=== PATIENT | male | born 1995 | race Caucasian/White ===

== ENCOUNTER 2025-02-21 11:07 | Outpatient (OUT) | payer OTHER, SELFPAY ==
--- OUTSIDE RECORDS SUMMARY | 2025-02-21 11:13 | XMS_ITS | Clinical Summary ---
Author Organization [facility] Address [address] [place] [address] Care Team Providers Care Medical Reception Specialist Name Role Phone Mich Peck DO Primary Care Provider [phone] Lucia Iqbal SENIOR LABEL SPECIALIST.CARPENTER REPAIRER Unavailable [phone] Vira Garsia ACCOUNTS SPECIALIST Unavailable Unavailable Allergies No known active allergies Medications prochlorperazi ne (COMPAZINE) 10 mg tablet Take 1 tablet by mouth every 6 hours as needed. 100 tablet 1 02/08/2022 3:55 PM EDT 2 Active ondansetron (ZOFRAN) 4 mg tablet Take 1 tablet by mouth every 8 hours as needed for nausea/vomiting. 90 tablet 1 02/14/2022 2:34 PM EDT 2 Active acetaminophen 325 mg cap Take by mouth as needed. Active ibuprofen (MOTRIN) 200 mg tablet Take 200 mg by mouth as needed. Active clomiPHENe (CLOMID) 50 mg tablet Take 25 mg by mouth once daily. Active cetirizine HCl (ZYRTEC ORAL) Take by mouth. A ctive busPIRone (BUSPAR) 10 mg tablet Take 1 tablet by mouth two times a day. 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 Discontinue saline lock post exam. If Pt. has a central line or IVAD, may access for administration according to line specific nursing protocol. Once exam is complete flush line and de-access according to line specific nursing protocol in the CT contrast administration guidelines link. 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) For CT CHESTABD/PEL W IVCON Routine order Administer, As Directed One Time Only, via Oral, Rectal, both Oral and Rectal, Enteric Tube, Stoma or Indwelling Catheter, Enteric Contrast as designated per enteric contrast guidelines 1 each 5 Active Active Problems Problem Noted Date Diagnosed Date Malignant neoplasm of descended left testis 06/2021 Resolved Problems Problem Noted Date Diagnosed Date Resolved Date Morbid obesity 02/09/2022 02/09/2022 Encounters Date Type Department Care Team Description 01/14/2025 4:00 PM EDT Visit (SP) Office Hematology/Oncolog y [address] [place] [address] [place] [address] Daquan Matamoros MD 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) (Primary Dx); 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); Personal history of malignant neoplasm of testis 01/14/2025 Travel 01/06/2025 8:30 AM EDT Infusion Center Hematology/Oncolog y [address] [place] [address] 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); Malignant neoplasm of testicle, unspecified laterality, unspecified whether descended or undescended (HCC) 01/06/2025 7:38 AM EDT - 01/06/2025 11:59 PM EDT Hospital Encounter Radiology Pet CT [address] [facility] [place] [place] [address] Malignant neoplasm of testicle, unspecified laterality, unspecified whether descended or undescended (HCC) [C62.90] Discharge Disposition: Home 01/06/2025 Results Follow-Up Hematology/Oncolog y [address] [place] [address] [place] [address] Evelin Encarnacion PA-C Results - Ct 01/06/2025 Travel 12/22/2024 Telephone Hematology/Oncolog y [facility] [place] [address] Daquan Matamoros MD Orders 12/10/2024 Telephone Hematology/Oncolog y [address] [facility] [place] [address] Daquan Matamoros MD [facility] Paperwork 12/02/2024 Telephone Hematology/Oncolog y [address] [facility] [place] [address] Daquan Matamoros MD [facility] Paperwork from Last 3 Months Immunizations Immunization Administration Dates Next Due COVID-19 original vaccine, f ull dose, monovalent (MODERNA) 04/26/2021,03/29/2021 COVID-19 vaccine (SISI) 04/18/2021,03/15/2021 adenovirus types 4 and 7 vac cine, live, oral 04/20/2017 hepatitis A (HepA) vaccine, 2-dose series, ped/adol (HAVRIX-PEDS, VAQTA-PEDS) 07/13/2017 hepatitis A-hepatitis B (Hep A-HepB) vaccine (TWINRIX) 04/04/2018 hepatitis B (HepB) vaccine, 3-dose series, age 0 yr - 19 yr (ENGERIX B-PEDS, RECOMBIVAX HB-PEDS) 07/13/2017 influenza (IIV4) vaccine, ag e 6 mo - 64 yr, quadrivalent, PF (AFLURIA, FLUARIX, FLULAVAL, FLUZONE) 03/21/2022,04/02/2019,04/04/2018 influenza (ccIIV4) vaccine, age 6+ mo, quadrivalent, PF (FLUCELVAX) 04/20/2017 meningococcal (MenACWY-CRM) vaccine, quadrivalent (MENVEO) 04/20/2017 meningococcal (MenACWY-D) va ccine, quadrivalent (MENACTRA) 04/20/2017 poliovirus (IPV) vaccine, in activated (IPOL) 07/13/2017 tetanus diphtheria pertussis (Tdap) vaccine, age 7+ yr (ADACEL, BOOSTRIX) 04/20/2017 Family History Medical History Relation Comments Alcohol abuse Brother Prostate Cancer Father Stroke Maternal Grandfather Heart disease Maternal Grandmother Hypertension Mother Colon Cancer Paternal Grandfather Stroke Paternal Grandfather Stroke Paternal Grandmother Prostate Cancer Paternal Uncle Relation Status Comments Brother Father Maternal Grandfather Maternal Grandmother Mother Paternal Grandfather Paternal Grandmother Paternal Uncle Alive Social History Tobacco Use Types Packs/Day Years Used Date Smoking Tobacco: Never Passive Smoke Exposure: Past Smokeless Tobacco: Current Chew Tobacco Cessation:Ready to Q uit: No; Counseling Given: No Alcohol Use Standard Drinks/Week Comments Not Currently 0 (1 standard drink = 0.6 oz pur e alcohol) PHQ-2 Answer Date Recorded PHQ-2 score 0 10/13/2024 Area Deprivation Index Answer Date Vinh rded National Score (1-100), lower number is lower ri sk 61 10/13/2024 State Score (1-10), lower number is lower risk 4 10/13/2024 Data from: https://www.neighborhoodatlas.medicine.[facility].edu/. Last address used for calculation [address] [address] 10/13/2024 Sex and Gender Information Value Date Recorded Sex Assigned at Not on file Legal Sex Male 9:04 AM EDT Gender Identity Not on file Sexual Orientation Not on file Last Filed Vital Signs Vital Sign Reading Time Taken Comments Blood Pressure 131/79 01/14/2025 3:29 PM EDT Pulse 53 01/14/2025 3:29 PM EDT Temperature 36.2 C (97.1 F) 01/14/2025 3:29 PM EDT Respiratory Rate 16 01/14/2025 3:29 PM EDT Oxygen Saturation 100% 01/14/2025 3:29 PM EDT Inhaled Oxygen Concentration - - Weight 137 kg (302 lb 0.5 oz) 01/14/2025 3:29 PM EDT Height 182.9 cm (6' 0.01 ) 01/14/2025 3:29 PM ED T Body Mass Index 40.95 01/14/2025 3:29 PM EDT Plan of Treatment Upcoming Encounters Date Type Department Care Team (Latest Contact Info) Description 04/09/2025 7:45 AM EST Appointment Radiology Pet CT [address] [place] [address] Ct CAP with contrast and lab 04/16/2025 3:40 PM EST Visit (SP) Office Hematology/Oncology [address] [place] [address] Daquan Matamoros MD [address] [place] [address] 3 month follwo up for ct and lab results Health Maintenance Due Date Last Done Comments Anxiety Screening 2012 Depression Screening 2012 HIV Screening 2012 Hepatitis C Screening 2012 Hepatitis B Vaccine (2 of 3 - 19+ 3-dose series) 05/02/2018 04/04/2018, 07/13/2017 HPV Vaccine (1 - 3-dose SCDM series) 2021 Influenza Vaccine (#1) 2025 2, 04/02/2019, 04/04/2018, Additional history exists DTaP,Tdap,Td Vaccine (2 - Td or Tdap) 04/20/2027 04/20/2017 Medical Devices Implanted Type Area Motion Picture Operator Device Identifier Shelf Expiration Date Model / Serial / Lot Power Port-02/23/2022 Implanted:2021 (Quantity not on file) Port Chest Procedures Procedure Name Priority Date/Time Associated Diagnosis Comments BETA HCG QUANT TUMOR MARKER Routine 01/06/2025 8:36 AM EDT 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) ALPHA FETOPROTEIN BL Routine 01/06/2025 8:36 AM EDT 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) CT CHEST WO IVCON Routine 01/06/2025 7:5 5 AM EDT Malignant neoplasm of testicle, unspecified laterality, unspecified whether descended or undescended (HCC) from Last 3 Months Results * BETA HCG QUANT TUMOR MARKER (01/06/2025 8:36 AM EDT) Beta hCG Quant Tumor Marker <1 0 - 3 IU/L 01/08/2025 1:45 AM EDT [facility] Comment: INTERPRETIVE INFORMATION: Beta hCG, Serum Quantitation Tumor Marker Human chorionic gonadotropin (hCG) is a valuable aid in the management of patients with trophoblastic tumors, nonseminomatous testicular tumors and seminomas when used in conjunction with information available from the clinical evaluation and other diagnostic procedures. Increased serum HCG concentrations have also been observed in melanoma, carcinomas of the breast, gastrointestinal tract, lung, and ovaries, and in benign conditions, including cirrhosis, duodenal ulcer, and inflammatory bowel disease. This result cannot be interpreted as absolute evidence of the presence or absence of malignant disease. This result is not interpretable as a tumor marker in females. The combination of the specific monoclonal antibodies used in the Trini Beta HCG electrochemiluminescent immunoassay recognize the holo-hormone, nicked forms of hCG, the beta-core fragment, and the free beta-subunit. Results obtained with different test methods or kits cannot be used interchangeably. Although this assay is FDA cleared for use in the detection of , it is not labeled for use as a tumor marker. Access complete set of age- and/or gender-specific reference intervals for this test in the [facility] Test Directory ([employer]). This test was developed and its performance characteristics determined by [facility]. It has not been cleared or approved by the US Food and Drug Administration. This test was performed in a CLIA certified laboratory and is intended for clinical purposes. Performed By: [facility] [address] [place] [address] Director Athletic: Gregory Pitt MD, PhD CLIA Number: [id number] Blood BLOOD SPECIMEN / Unknown Port - Continuous Access Dev. / Unknown 01/06/2025 8:36 AM EDT 01/06/2025 8:40 AM EDT Brown Chavez MD LABORATORY Final Re sult [facility] [address] [place] [address] * ALPHA FETOPROTEIN (01/06/2025 8:36 AM EDT) AFP, Serum (Tumor Marker) 3.12 <9.00 ng/mL 01/07/2025 9:30 AM EDT [facility] Comment:The Alpha-Fetoprotei n test was performed using the [employer] DxI immunoenzymatic assay. Results obtained with different assay methods or kits cannot be used interchangeably. Blood BLOOD SPECIMEN / Unknown Port - Continuous Access Dev. / Unknown 01/06/2025 8:36 AM EDT 01/06/2025 8:40 AM EDT Narrative [facility] - 01/07/2025 9:30 AM EDT The test is typically used as an aid in managing hepatocellular carcinoma and non-seminomatous testicular cancer when used in conjunction with physical examination, histology, and other clinical evaluation procedures. Normal levels of AFP do not entirely exclude the possibility of the above-mentioned conditions, other malignancies, and chronic liver diseases. The normal range has not been established for newborns. us Brown Chavez MD LABORATORY Final Re sult [facility] [address] [facility] Desk [address] [place] [id number], [place] * CT CHEST WO IVCON (01/06/2025 7:55 AM EDT) Anatomical Region Laterality Modality Chest Nuclear Medicine , Nuclear Medicine 01/06/2025 7:55 AM EDT Impressions 01/06/2025 12:26 PM EDT IMPRESSION: 1. Interval resolution of some the previously noted nodular opacities. 2. Residual subcentimeter nodular opacities measuring less than 5 mm, stable since 10/06/24. Consider continued interval follow-up. 3. No evidence of new intrathoracic abnormalities. Transcribe Date/Time: Jan 06 2025 11:37A Dictated by: TRAE LEONARD MD This examination was interpreted and the report reviewed and electronically signed by: TRAE LEONARD MD on Jan 06 2025 12:24PM EST Thank you for allowing us to participate in the care of your patient. Should there be any questions regarding this interpretation, please call [phone]. If you are unable to reach us at the number above, please feel free to contact [facility] at [phone]. Narrative 01/06/2025 12:26 PM EDT * * *Final Report* * * DATE OF EXAM: Jan 06 2025 7:55AM [facility] 0541 - CT CHEST WO IVCON / PROCEDURE REASON: Malignant neoplasm of testicle, unspecified laterality, unspecified whether desc * * * * Physician Interpretation * * * * RESULT: EXAMINATION: CHEST CT WITHOUT CONTRAST CLINICAL HISTORY: Testicular cancer Technique: Spiral CT acquisition of the chest from the thoracic inlet to the upper abdomen without contrast. MQ: CTCWO_6 CT Radiation dose: Integrated Dose-length product (DLP) for this visit = 523 mGy*cm CT Dose Reduction Employed: Automated exposure control (AEC) Comparison: 10/06/24 RESULT: Limitations: None. Lines, tubes, and devices: Right Port-A-Cath. Lung parenchyma and airways: Interval resolution of some of the previously noted nodular opacities. Residual nodular opacities measuring less than 5 mm, stable. For example Right upper lobe (3:82) Right middle lobe (3:126, 127) Left lower lobe (3:66, 133) No new airspace opacities. The central airways are patent. Pleural space: No pleural effusion. No pleural thickening. Lower neck, lymph nodes, and mediastinum: The imaged thyroid gland is normal. No lymphadenopathy in the supraclavicular, axillary, mediastinal, or hilar regions. Residual thymus is noted in the anterior mediastinum, stable. Heart, pericardium, and thoracic vessels: The thoracic aorta and main pulmonary artery are normal in caliber. The cardiac chambers are normal in size. No coronary artery atherosclerotic calcifications are noted, although the study is not optimized for coronary assessment. No pericardial effusion or thickening. Bones and soft tissues: Sclerotic foci in the T4, T7 vertebral body, and left posterior eighth rib, stable and may represent bone islands. No new osseous abnormalities. Upper abdomen: Stable Materials Management Supervisor (topogram) images: No additional findings. Procedure Note Provider, [facility] - 01/06/2025 * * *Final Report* * * DATE OF EXAM: Jan 06 2025 7:55AM [facility] 0541 - CT CHEST WO IVCON / PROCEDURE REASON: Malignant neoplasm of testicle, unspecified laterality, unspecified whether desc * * * * Physician Interpretation * * * * RESULT: EXAMINATION: CHEST CT WITHOUT CONTRAST CLINICAL HISTORY: Testicular cancer Technique: Spiral CT acquisition of the chest from the thoracic inlet to the upper abdomen without contrast. MQ: CTCWO_6 CT Radiation dose: Integrated Dose-length product (DLP) for this visit = 523 mGy*cm CT Dose Reduction Employed: Automated exposure control (AEC) Comparison: 10/06/24 RESULT: Limitations: None. Lines, tubes, and devices: Right Port-A-Cath. Lung parenchyma and airways: Interval resolution of some of the previously noted nodular opacities. Residual nodular opacities measuring less than 5 mm, stable. Forexample Right upper lobe (3:82) Right middle lobe (3:126, 127) Left lower lobe (3:66, 133) No new airspace opacities. The central airways are patent. Pleural space: No pleural effusion. No pleural thickening. Lower neck, lymph nodes, and mediastinum: The imaged thyroid gland is normal. No lymphadenopathy in the supraclavicular, axillary, mediastinal, or hilar regions. Residual thymus is noted in the anterior mediastinum, stable. Heart, pericardium, and thoracic vessels: The thoracic aorta and main pulmonary artery are normal in caliber. The cardiac chambers are normal in size. No coronary artery atherosclerotic calcifications are noted, although the study is not optimized for coronary assessment. No pericardial effusion or thickening. Bones and soft tissues: Sclerotic foci in the T4, T7 vertebral body, and left posterior eighth rib, stable and may represent bone islands. No new osseous abnormalities. Upper abdomen: Stable Materials Management Supervisor (topogram) images: No additional findings. IMPRESSION IMPRESSION: 1. Interval resolution of some the previously noted nodular opacities. 2. Residual subcentimeter nodular opacities measuring less than 5 mm, stable since 10/06/24. Consider continued interval follow-up. 3. No evidence of new intrathoracic abnormalities. Transcribe Date/Time: Jan 06 2025 11:37A Dictated by: TRAE LEONARD MD This examination was interpreted and the report reviewed and electronically signed by: TRAE LEONARD MD on Jan 06 2025 12:24PM EST Thank you for allowing us to participate in the care of your patient. Should there be any questions regarding this interpretation, please call [phone]. If you are unable to reach us at the number above, please feel free to contact [facility] at [phone]. us Evelin Encarnacion PA-C CT-PAMA Final Result from Last 3 Months Insurance [address] [address] [facility] Care Teams Medical Reception Specialist Relationship Specialty Start Date End Date Mich Peck DO [address] [place] [address] PCP - General Family Medicine 12/21/21 Lucia Iqbal APRN.CARPENTER REPAIRER [address] [place] [address] [place] [address] Nurse Practitioner Hematology/Oncology 02/07/22 Vira Garsia LSW Overhead Cleaner 02/08/22 Jie Ext - [id number] 02/14/22
--- OUTSIDE RECORDS SUMMARY | 2025-02-21 11:13 | XMS_ITS | Encounter Summary ---
Author Organization [facility] Address [address] [place] [address] Care Team Providers Care Machine Washer Name Role Phone Mich Peck DO Primary Care Provider [phone] Brown Chavez MD Unavailable Unavail able Lucia Iqbal HEAD ANIMAL KEEPER.FEATHER TRIMMER Unavailable [phone] Yamilet Duffy RN Unavailable [phone] Vira Garsia CAR BODY DESIGNER Unavailable Unavailable Source Comments In the event this information is protected by the Federal Confidentiality of Alcohol and Drug AbusePatient Records regulations: The Federal rules restrict any use of the information to criminally investigate or prosecute any alcohol or drug abuse patient.[facility] Encounter Details Date Type Department Care Team (Late st Contact Info) Description 01/06/2022 Lab Requisition [facility] [address] [place] [id number] Brown Chavez MD Person encountering health services to consult on behalf of another person Social History Tobacco Use Types Packs/Day Years Used Date Smoking Tobacco: Never Smokeless Tobacco: Current Chew Alcohol Use Standard Drinks/Week Comments Not Currently 0 (1 standard drink = 0.6 oz pur e alcohol) Area Deprivation Index Answer Date Vinh rded National Score (1-100), lower number is lower ri 82 01/02/2022 State Score (1-10), lower number is lower risk N ot on file 01/02/2022 Data from: https://www.neighborhoodatlas.medicine.[facility].edu/. Last address used for calculation [address] 01/02/2022 Sex and Gender Information Value Date Recorded Sex Assigned at Not on file Legal Sex Male 9:04 AM EDT Gender Identity Not on file Sexual Orientation Not on file COVID-19 Exposure Response Date Recorded In the last 10 days, have yo u been in contact with someone who was confirmed or suspected to have Coronavirus/COVID-19? No / Unsure 01/09/2022 1:57 PM EDT documented as of this encounter Plan of Treatment Upcoming Encounters Date Type Department Care Team (Latest Contact Info) Description 04/09/2025 7:45 AM EST Appointment Radiology Pet CT [address] [place] [address] [place] [address] Ct CAP with contrast and lab 04/16/2025 3:40 PM EST Visit (SP) Office Hematology/Oncology [address] [place] [address] [place] [address] Daquan Matamoros MD [address] [place] [address] [place] [address] 3 month follwo up for ct and lab results documented as of this encounter Procedures Procedure Name Priority Date/Time Associated Diagnosis Comments OUTSIDE SURG PATH SLIDE REVIEW Routine 01/06/2022 1:58 PM EDT Person encountering health services to consult on behalf of another person documented in this encounter Results * OUTSIDE SURG PATH SLIDE REVIEW (01/06/2022 1:58 PM EDT) Case Report Surgical Pathology Report Case: [id number] Authorizing Provider: Brown Chavez MD Collected: 01/06/2022 01:58 PM Ordering Location: [facility] Main Received: 01/06/2022 01:57 PM Pathologist: Germain Rodriguez MD Specimen: SLIDE(S), 22 Slides - [id number] 01/10/2022 3:52 PM EDT [facility] FINAL DIAGNOSIS Outside Slide Review, [facility], [place], [place] Testis, left, radical orchiectomy ([id number], slides [id number]-[id number]; 12/15/2021): - Malignant mixed germ cell tumor, 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 - Tumor is confined to the testis. - Lymphovascular invasion is identified. 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 - Surgical resection margins are negative for malignancy. [facility]/mm/01/10/2022 01/10/2022 3:52 PM EDT [facility] at 1552 EDT Diagnosis Comment Submitted immunohistochemical stains are reviewed and of note CD30 highlights areas of embryonal carcinoma. CD117 and PLAP highlight the area of seminoma. 01/10/2022 3:52 PM EDT [facility] Performing Lab Diagnostic interpretation performed at [facility], [address] [place] [address] CLIA# [id number] It Communications Manager: Jamie Fair M.D. 01/10/2022 3:52 PM EDT [facility] Blocks or Slides MICROSCOPE SLIDE / Unknown 01/06/2022 1:58 PM EDT 01/06/2022 1:57 PM EDT us Brown Chavez MD SURGICAL PATHOLOGY Final Result [facility] [address] [place] [address] documented in this encounter Visit Diagnoses Diagnosis Person encountering health services to consult on behalf of another person Other person consulting on behalf of another person documented in this encounter Care Teams Machine Washer Relationship Specialty Start Date End Date Mich Peck DO [address] [place] [address] PCP - General Family Medicine 12/21/21 Brown Chavez MD [address] [place] [address] Physician Hematology/Oncology 02/07/22 12/05/24 Lucia Iqbal APRN.[facility] [address] [place] [address] Nurse Practitioner Hematology/Oncology 02/07/22 Yamilet Duffy, CELIA [address] [place] [address] Specialty Hot Head Machine Operator Hematology/Oncology 02/07/22 04/03/23 Vira Garsia LSW Continuous Improvement Coordinator 02/08/22 Jie Ext - [id number] 02/14/22 documented as of this encounter
--- OUTSIDE RECORDS SUMMARY | 2025-02-21 11:13 | XMS_ITS | Encounter Summary ---
Author Organization [facility] Address [address] [place] [address] Care Team Providers Care Pulp Drier Name Role Phone Mich Peck DO Primary Care Provider [phone] Brown Chavez MD Unavailable Unavail able Lucia Iqbal CAUSTIC PUMP OPERATOR.BALANCE STAFF INSPECTOR Unavailable [phone] Vira Garsia Unavailable Unavailable Source Comments In the event this information is protected by the Federal Confidentiality of Alcohol and Drug AbusePatient Records regulations: The Federal rules restrict any use of the information to criminally investigate or prosecute any alcohol or drug abuse patient.[facility] Encounter Details Date Type Department Care Team (Late st Contact Info) Description 10/07/2024 Patient Msg Pulmonary Medicine [id number] Result Notification Social History Tobacco Use Types Packs/Day Years Used Date Smoking Tobacco: Never Passive Smoke Exposure: Past Smokeless Tobacco: Current Chew Alcohol Use Standard Drinks/Week Comments Not Currently 0 (1 standard drink = 0.6 oz pur e alcohol) PHQ-2 Answer Date Recorded PHQ-2 score 0 11/12/2023 Area Deprivation Index Answer Date Vinh rded National Score (1-100), lower number is lower ri sk 91 11/02/2022 State Score (1-10), lower number is lower risk 9 11/02/2022 Data from: https://www.neighborhoodatlas.[facility].edu/. Last address used for calculation [address] [facility] 11/02/2022 Sex and Gender Information Value Date Recorded Sex Assigned at Not on file Legal Sex Male 9:04 AM EDT Gender Identity Not on file Sexual Orientation Not on file documented as of this encounter Plan of Treatment Upcoming Encounters Date Type Department Care Team (Latest Contact Info) Description 04/09/2025 7:45 AM EST Appointment Radiology Pet CT [address] [place] [address] [place] [address] Ct CAP with contrast and lab 04/16/2025 3:40 PM EST Visit (SP) Office Hematology/Oncology [address] [place] [address] [place] [address] Daquan Matamoros MD [address] [place] [address] [place] [address] 3 month follwo up for ct and lab results documented as of this encounter Visit Diagnoses Not on filedocumented in this encounter Care Teams Pulp Drier Relationship Specialty Start Date End Date Mich Peck DO [address] [place] [address] PCP - General Family Medicine 12/21/21 Brown Chavez MD [address] [place] [address] Physician Hematology/Oncology 02/07/22 Lucia Iqbal APRN.BALANCE STAFF INSPECTOR [address] [place] [address] [place] [address] Nurse Practitioner Hematology/Oncology 02/07/22 Vira Garsia LSW Taste Tester 02/08/22 Jie Ext - [id number] 02/14/22 documented as of this encounter
--- OUTSIDE RECORDS SUMMARY | 2025-02-21 11:13 | XMS_ITS | Encounter Summary ---
Author Organization [facility] Address [address] [place] [address] Care Team Providers Care Furniture Assembly Supervisor Name Role Phone Mich Peck DO Primary Care Provider [phone] Brown Chavez MD Unavailable Unavail able Lucia Iqbal RACEHORSE TRAINER.DIRECTOR DESIGN Unavailable [phone] Yamilet Duffy RN Unavailable [phone] Vira Garsia CONTACT CLERK Unavailable Unavailable Source Comments In the event this information is protected by the Federal Confidentiality of Alcohol and Drug AbusePatient Records regulations: The Federal rules restrict any use of the information to criminally investigate or prosecute any alcohol or drug abuse patient.[facility] Encounter Details Date Type Department Care Team (Late st Contact Info) Description 02/08/[address] [facility] Radiology Procedure [address] [place] [address] Provider, Ccf You are scheduled for a Port placement, On 02/09/2022. Social History Tobacco Use Types Packs/Day Years Used Date Smoking Tobacco: Never Passive Smoke Exposure: Past Smokeless Tobacco: Current Chew Alcohol Use Standard Drinks/Week Comments Not Currently 0 (1 standard drink = 0.6 oz pur e alcohol) PHQ-2 Answer Date Recorded PHQ-2 score 0 01/17/2022 Area Deprivation Index Answer Date Vinh rded National Score (1-100), lower number is lower ri sk 82 01/02/2022 State Score (1-10), lower number is lower risk N ot on file 01/02/2022 Data from: https://www.neighborhoodatlas.[facility].edu/. Last address used for calculation [address] [...] suspected to have Coronavirus/COVID-19? No / Unsure 02/08/2022 2:52 PM EDT documented as of this encounter Plan of Treatment Upcoming Encounters Date Type Department Care Team (Latest Contact Info) Description 04/09/2025 7:45 AM EST Appointment Radiology Pet CT [address] [place] [address] [place] [address] Ct CAP with contrast and lab 04/16/2025 3:40 PM EST Visit (SP) Office Hematology/Oncology [address] [place] [address] [place] [address] Daquan Matamoros MD [address] [place] [address] [place] [address] 3 month follwo up for ct and lab results documented as of this encounter Visit Diagnoses Not on filedocumented in this encounter Care Teams Furniture Assembly Supervisor Relationship Specialty Start Date End Date Mich Peck DO [address] [place] [address] PCP - General Family Medicine 12/21/21 Brown Chavez MD [address] [place] [address] Physician Hematology/Oncology 02/07/22 12/05/24 Lucia Iqbal, NAHUN.DIRECTOR DESIGN [address] [place] [address] [place] [address] Nurse Practitioner Hematology/Oncology 02/07/22 Yamilet Duffy, RN [address] [place] [address] [place] [address] Specialty Healthcare Translator Hematology/Oncology 02/07/22 04/03/23 Vira Garsia LSW Mandrel Puller 02/08/22 Jie Ext - [id number] 02/14/22 documented as of this encounter
--- OUTSIDE RECORDS SUMMARY | 2025-02-21 11:13 | XMS_ITS | Encounter Summary ---
Author Organization [facility] Address [address] [place] [address] Care Team Providers Care Phosphoric Acid Operator Name Role Phone Elianeaparna Mich Meyer DO Primary Care Provider [phone] Brown Chavez MD Unavailable Unavail able Lucia Iqbal GRINDER AND PLATER.JOB SPECIFICATION WRITER Unavailable [phone] Vira Garsia Unavailable Unavailable Source Comments In the event this information is protected by the Federal Confidentiality of Alcohol and Drug AbusePatient Records regulations: The Federal rules restrict any use of the information to criminally investigate or prosecute any alcohol or drug abuse patient.[facility] Encounter Details Date Type Department Care Team (Late st Contact Info) Description 05/21/2024 Patient Msg Urology [address] [place] [address] Yuliana Damon APRN.JOB SPECIFICATION WRITER [facility] [address] [address] [place] [address] infertility specialist Social History Tobacco Use Types Packs/Day Years [...] is lower risk 9 11/02/2022 Data from: https://www.neighborhoodatlas.medicine.[facility].edu/. Last address used for calculation [address] 11/02/2022 Sex and Gender Information Value Date Recorded Sex Assigned at Not on file Legal Sex Male 9:04 AM EDT Gender Identity Not on file Sexual Orientation Not on file documented as of this encounter Plan of Treatment Upcoming Encounters Date Type Department Care Team (Latest Contact Info) Description 04/09/2025 7:45 AM EST Appointment Radiology Pet CT [address] [facility] [place] [address] Ct CAP with contrast and lab 04/16/2025 3:40 PM EST Visit (SP) Office Hematology/Oncology [address] [facility] [place] [address] Daquan Matamoros MD [address] [place] [address] [place] [address] 3 month follwo up for ct and lab results documented as of this encounter Visit Diagnoses Not on filedocumented in this encounter Care Teams Phosphoric Acid Operator Relationship Specialty Start Date End Date Mich Peck DO [address] [place] [address] PCP - General Family Medicine 12/21/21 Brown Chavez MD [address] [place] [address] Physician Hematology/Oncology 02/07/22 Lucia Iqbal APRN.JOB SPECIFICATION WRITER [address] [place] [address] Nurse Practitioner Hematology/Oncology 02/07/22 Vira Garsia LSW Rn Advice 02/08/22 Jie [facility] - [id number] 02/14/22 documented as of this encounter
--- OUTSIDE RECORDS SUMMARY | 2025-02-21 11:13 | XMS_ITS ---
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 Past Treatment and Therapy Plans ONCOLOGY REGIMEN Plan Name Start Date Discontinue Date Treatment Medications Discontinue Reason Plan Provider Cycles AMB BEP 3 CYCLES - CISPLATIN 20 D1-5 ETOPOSIDE 100 D1-5 BLEOMYCIN 30 UNITS D2,9,16 - Q21D 2 07/13/2022 bleomycin iv piggyback (BLENOXANE)CISplati n iv piggyback or iv infusionetoposide iv piggyback (VEPESID)fosaprepit ant (EMEND) Other Brown Chavez MD 3 of 3 cycles started Lifetime Dose Tracking * Chemical Lifetime Dose Automatic Entry Manual Entr y bleomycin 240 Units 240 Units 0 Units Resolved Problems Problem Noted Date Diagnosed Date Resolved Date Morbid obesity 02/09/2022 02/09/2022
--- NOTE | 2025-02-21 11:40 | XR_ITS ---
The [address] [address] Patient Name: NATA GARCIA MRN: [id number] date: 1995 Sex: M Assigned Patient Location: [facility] Current Patient Location: [facility] Accession/Order Number: [id number] Exam Date: 02/21/2025 11:50 Report Date: 02/21/2025 13:07 At the request of: MARIBELL TREADWELL Procedure: XR lumbar spine 2-3V 2 views lumbar spine INDICATION: Lumbar back pain Comparison: No recent comparisons available. FINDINGS: Mild levocurvature. Loss of height L1 likely along a congenital or chronic basis given the morphology. Minimal multilevel intermargin plate spurring greatest L2-3. Evidence of facet arthropathy greatest L5-S1. XR/XR lumbar spine 2-3V IMPRESSION: Mild degenerative changes. Mild levocurvature Impression dictated by: Matthew Michelle M.D. 02/21/2025 1:07 PM Dictation Location: [place] [address] Electronically authenticated by: [id number] Y Date: 02/21/2025 13:07
== END 2025-02-21 11:08 | disposition home or self-care (01) ==
PROVIDERS: PCP Family Medicine; Visit Provider Family Medicine
DX: M54.50 Low back pain, unspecified (principal)
CPT/HCPCS: 72100